=== PATIENT | female | born 1965 | race African-American/Black ===

== ENCOUNTER 2019-08-25 22:17 | Observation (INO) ==
[2019-08-26 02:07] LABS: Basophils # 0.1 10*3/uL (0.0-0.2); Basophils % 0.7 % (0.0-0.8); Eosinophils # 0.1 10*3/uL (0.0-0.87); Eosinophils % 1.7 % (0.00-10.9); Hematocrit 30.5 VOL% (35.7-47.0); Hemoglobin 8.9 GM/DL (12.0-16.0); Immature Granulocytes % 0.3 %; Immature Granulocytes Absolute 0.02 #; Lymphocytes # 2.5 10*3/uL (1.4-4.0); Lymphocytes % 34.5 % (21.3-54.2); Mean Corpuscular HGB Conc 29.2 GM/DL (32-36); Mean Corpuscular Volume 73.8 FL (87-102); Mean Platelet Volume 11.4 FL (9.6-12.0); Monocytes % 11.3 % (1.7-12.7); Neutrophils % 51.5 % (38.7-73.9); Platelet Count 193 T/CUMM (130-400); Red Blood Count 4.13 MC/CUMM (3.8-5.5); Red Cell Distribution Width 17.2 % (9.3-17.3); White Blood Count 7.1 T/CUMM (4-12)
[2019-08-26 02:23] LABS: Albumin 3.3 G/DL (3.4-5.0); Bilirubin,Total 0.4 MG/DL (0.2-1.0); Osmolality,Calculated 279.4 MOS/KG (273-304); Total Protein 7.3 G/DL (6.4-8.3)
[2019-08-26] MEDS ORDERED: ASPIRIN 325 MG TABLET PO STA (03:43)
[2019-08-26] MEDS ORDERED: NITROGLYCERIN 2% OINT 1 INCH/GM PACK TOP STA (03:43)
[2019-08-26] MEDS ORDERED: ENOXAPARIN 30 MG/0.3 ML SYRINGE SUBCUT STA (03:43)
[2019-08-26] MEDS ORDERED: ENOXAPARIN 120 MG/0.8 ML SYRINGE SUBCUT STA (03:47)
[2019-08-26] MEDS ORDERED: hydrALAZINE 20 MG/1 ML VIAL ONE (05:10)
[2019-08-26] MEDS ORDERED: hydrALAZINE 20 MG/1 ML VIAL IV STA (05:34)
[2019-08-26] MEDS ORDERED: DOCUSATE SODIUM 100 MG CAPSULE PO PRN (06:42)
[2019-08-26] MEDS ORDERED: hydrALAZINE 20 MG/1 ML VIAL IV PRN (06:42)
[2019-08-26] MEDS ORDERED: NITROGLYCERIN SL 0.4 MG TABLET SL PRN (06:42)
[2019-08-26] MEDS ORDERED: ONDANSETRON 4 MG/2 ML VIAL IV PRN (06:42)
[2019-08-26] MEDS ORDERED: MORPHINE 4 MG/1 ML VIAL IV PRN (06:42)
[2019-08-26] MEDS ORDERED: LIOTHYRONINE 25 MCG TABLET PO SCH (07:00)
[2019-08-26 07:31] LABS: Basophils % 0.7 % (0.0-0.8); Eosinophils # 0.1 10*3/uL (0.0-0.87); Eosinophils % 2.2 % (0.00-10.9); Hematocrit 33.7 VOL% (35.7-47.0); Hemoglobin 9.8 GM/DL (12.0-16.0); Immature Granulocytes % 0.3 %; Immature Granulocytes Absolute 0.02 #; Lymphocytes # 2.7 10*3/uL (1.4-4.0); Lymphocytes % 45.6 % (21.3-54.2); Mean Corpuscular HGB Conc 29.1 GM/DL (32-36); Mean Corpuscular Volume 74.6 FL (87-102); Mean Platelet Volume 11.8 FL (9.6-12.0); Monocytes % 7.3 % (1.7-12.7); Neutrophils % 43.9 % (38.7-73.9); Platelet Count 202 T/CUMM (130-400); Red Blood Count 4.52 MC/CUMM (3.8-5.5); Red Cell Distribution Width 17.1 % (9.3-17.3); White Blood Count 5.9 T/CUMM (4-12)
[2019-08-26 07:39] LABS: % Iron Saturation 4.3 % (18-50); Ferritin 2.6 ng/ml (8-252); Risk Ratio 4.33; VLDL CHOLESTEROL 19.6 MG/DL
[2019-08-26 08:08] LABS: Folate 23.3 NG/ML (5.4-24.0); Sedimentation Rate-Westergren 53 MM/HR (0-30); Vitamin B12 1125 PG/ML (211-911)
[2019-08-26] MEDS: LEVOTHYROXINE 150 MCG TABLET PO SCH (08:14)
[2019-08-26] MEDS: PANTOPRAZOLE 40 MG TABLET PO SCH (08:14)
[2019-08-26] MEDS: LOSARTAN 50 MG TABLET PO SCH (08:14)
[2019-08-26] MEDS: ENOXAPARIN 120 MG/0.8 ML SYRINGE SUBCUT SCH (15:12)
[2019-08-26] MEDS: GABAPENTIN 100 MG CAPSULE PO SCH ×2 (15:12→20:29)
[2019-08-26] MEDS: ACETAMINOPHEN 325 MG TABLET PO PRN ×2 (15:23→20:29)
[2019-08-26] MEDS ORDERED: NAPROXEN 250 MG TABLET PO ONE (15:56)
[2019-08-26] MEDS: ASPIRIN CHEW 81 MG TABLET PO SCH (16:27)
[2019-08-27 01:29] LABS: Barbiturates Screen,Urine Negative (Negative); Benzodiazepines Screen,Urine Negative (Negative); Cannabinoid Screen,Urine Negative (Negative); Opiate Screen,Urine Negative (Negative); Phencyclidine Screen,Urine Negative (Negative)
[2019-08-27 04:53] LABS: Basophils % 0.6 % (0.0-0.8); Eosinophils # 0.1 10*3/uL (0.0-0.87); Hematocrit 30.1 VOL% (35.7-47.0); Hemoglobin 8.7 GM/DL (12.0-16.0); Immature Granulocytes % 0.4 %; Immature Granulocytes Absolute 0.02 #; Lymphocytes # 1.9 10*3/uL (1.4-4.0); Lymphocytes % 38.4 % (21.3-54.2); Mean Corpuscular HGB Conc 28.9 GM/DL (32-36); Mean Platelet Volume 10.9 FL (9.6-12.0); Monocytes % 9.9 % (1.7-12.7); Neutrophils % 48.7 % (38.7-73.9); Platelet Count 184 T/CUMM (130-400); Red Blood Count 4.07 MC/CUMM (3.8-5.5); Red Cell Distribution Width 17.1 % (9.3-17.3); White Blood Count 5.1 T/CUMM (4-12)
[2019-08-27] MEDS: ENOXAPARIN 120 MG/0.8 ML SYRINGE SUBCUT SCH (05:12)
[2019-08-27 05:14] LABS: Hypochromasia 1+; Platelet Estimate Adequate
[2019-08-27 05:19] LABS: Calcium 8.8 MG/DL (8.5-10.1); Osmolality,Calculated 283.1 MOS/KG (273-304)
[2019-08-27] MEDS: LEVOTHYROXINE 150 MCG TABLET PO SCH (06:06)
[2019-08-27] MEDS: GABAPENTIN 100 MG CAPSULE PO SCH (09:03)
[2019-08-27] MEDS: ACETAMINOPHEN 325 MG TABLET PO PRN (09:03)
[2019-08-27] MEDS: ASPIRIN CHEW 81 MG TABLET PO SCH (09:03)
[2019-08-27] MEDS: PANTOPRAZOLE 40 MG TABLET PO SCH (09:04)
[2019-08-27] MEDS: LOSARTAN 50 MG TABLET PO SCH (09:04)
[2019-08-27 09:32] LABS: Hemoglobin A1 (Alkaline) 97.8 % (96.5-98.5); Hemoglobin A2 (Alkaline) 2.2 % (1.5-3.5)
[2019-08-27] MEDS ORDERED: FERROUS SULFATE 325 MG TABLET PO SCH (10:30)
[2019-08-27 11:52] VITALS: BP 163/85
== END 2019-08-27 15:01 | disposition home or self-care (01) ==
LOC: N.ED 22:17 → N.EDINP 22:17 → SUATTDRO 08-26 03:46 → N.TELES 08-26 05:16
PROVIDERS: ADMIT Internal Medicine; ATTEND Hospitalist